=== PATIENT | female | born 1940 | race Caucasian/White ===

== ENCOUNTER 2024-01-24 07:15 | Day surgery (SDC) | payer MEDICARE, BC ==
[~2024-01-24] VITALS: Ht 157.5 cm; Wt 96.6 kg
[~2024-01-24 07:15] MED LIST: ACET-897 PO; B-12100010 PO; BIOT1CAP2 PO; LIDOCAINE W/EPINEPHRINE 1% 20ML VIAL XX ONE; METF500T13 PO; METO1TAB32 PO; OMEG10002 PO; PRES10CA2 PO; ROSU10TA61 PO; THERTAB52 PO; TRAM50TA2 PO; TRIA37.5 PO
[2024-01-24] MEDS: LIDOCAINE 1% MDV 20ML VIAL INJ ONE (08:53)
[2024-01-24] MEDS: SODIUM BICARBONATE 8.4% INJ 50MEQ 50ML VIAL XX ONE (08:53)
[2024-01-24 10:19] VITALS: BP 175/95; TEMP 97.1; O2SAT 97
== END 2024-01-24 10:20 | disposition home or self-care (01) ==
LOC: M SDC 07:15
PROVIDERS: ATTEND Orthopaedic Surgery Hand Surgery
DX: M79.5 Residual foreign body in soft tissue (principal); E11.9 Type 2 diabetes mellitus without complications; I10 Essential (primary) hypertension; Z79.899 Other long term (current) drug therapy; Z79.84 Long term (current) use of oral hypoglycemic drugs